=== PATIENT | male | born 1955 | race Caucasian/White ===

== ENCOUNTER 2023-11-11 11:10 | Emergency (ER) | payer MEDICARE, BC, SELFPAY ==
[2023-11-11 11:26] LABS: Glucose - Point of Care 120 mg/dl (70-99)
[2023-11-11 11:29] VITALS: BP 143/78
[2023-11-11 11:30] VITALS: BP 143/78; BMI 28.3
[2023-11-11 11:42] LABS: % Basophils 0.2 % (0-2); % Eosinophils 0.6 % (0-6); % Immature Granulocytes 0.3 % (0-0.5); % Lymphocytes 9.8 % (20.5-51.1); % Monocytes 9.4 % (1.7-9.3); % Neutrophils 79.7 % (42.2-75.2); Absolute Eosinophils 0.1 10^3/uL (0-0.7); Absolute Lymphocytes 1.4 10^3/uL (1.2-3.4); Absolute Monocytes 1.3 10^3/uL (0.1-0.6); Absolute Neutrophils 11.3 10^3/uL (1.4-6.5); Hematocrit 44.3 % (39.0-52.0); Hemoglobin 14.7 g/dL (13.0-18.0); Mean Corp Hgb Conc. 33.2 g/dL (33.0-37.0); Mean Corpuscular Hgb 32.3 pg (27.0-31.0); Mean Corpuscular Volume 97.4 fL (80.0-94.0); Mean Platelet Volume 10.1 fL (7.4-10.4); Nucleated Red Blood Cells % 0 % (-); Platelet Count 150 10^3/uL (130-400); Red Blood Cell Count 4.55 10^6/uL (4.70-6.10); White Blood Cell Count 14.1 10^3/uL (4.8-10.8)
[2023-11-11 11:56] LABS: Blood Urea Nitrogen 20 mg/dl (9-20); Calcium 9.4 mg/dl (8.4-10.2); Carbon Dioxide 26 mmol/L (22-30); Chloride 107 mmol/L (98-107); Estimated Creatinine Clearance 117 ml/min; Glucose 126 mg/dl (70-99); Sodium 141 mmol/L (135-145); eGFR > 60.00
[2023-11-11 12:00] VITALS: BP 150/79
[2023-11-11 13:00] VITALS: BP 146/69
--- NOTE | 2023-11-11 13:00 | ED.GENMED ---
History of Present Illness
General
Chief Complaint: Weakness
Source: patient
Exam Limitations: none
Time Seen by Provider: 11/11/23 12:45
Travel History
Have you had any contact with someone who has COVID-19?: No
Do you have any symptoms of coronavirus? Fever > 100 degrees, chills, cough, shortness of breath, sore throat, loss of taste or smell, muscle aches, or headache?: No
History of Present Illness
History of Present Illness:
68-year-old male with history of Parkinson's presents after a fall. He is here visiting from [place] staying in a hotel. states that the travel does sometimes make him more weak. His leg froze today and he got ahead of himself with a walker
when he fell. He has an extensive spine surgical history including fusion in his lumbar spine that led to an infection and subsequently cauda equina and decompressive surgery. He also had another fall with an injury to his cervical spine requiring
anterior and posterior instrumentation. This was done in the last several years by a neurosurgeon in [place]. He denies any pain from the fall today. He did not hit his head. The supports this. He is not anticoagulated. No new numbness or
weakness to the arms or legs.
Past History
Past History
ED Past Medical History: HTN, Hypercholesterolemia and Other (Diabetes)
ED Past Surgical History: Appendectomy and Orthopedic
Social History
Tobacco: Non-smoker
Alcohol: Occasional
Drug: None
Personal:
Living: with family
Employment: Employed
Family History
Family History: Other (Noncontributory)
Phy Exam
Physical Exam
Physical Exam:
General: Well-appearing male no acute respiratory distress
HEENT: Normocephalic blunted affect mucosa moist
Heart: Regular rate and rhythm lungs: Clear no wheeze
Musculoskeletal exam: No deformity noted to the lower extremities. Passive internal/external rotation of the hips are not painful. He is slightly tender over the cervical spine but nontender over the lumbar spine. Thoracic spine nontender
Extremities: No cyanosis or edema
skin: Well-appearing surgical incisions over the neck and lower back no rash
Course
Orders/Labs/Results
Orders:
Orders
11/11/23 11:17
ECG [Electrocardiogram (*1)] Urgent
Reason for Study: Fatigue / Weakness
EKG- Treatment ONCE
11/11/23 11:23
Basic Metabolic Panel Urgent
Complete Blood Count/With Diff Urgent
11/11/23 13:00
CT Cervical Spine W/o Iv Contr Urgent
Comment:
Reason For Exam: fall
CR Lumbar Spine 2 Or 3 Views Urgent
Comment:
Reason For Exam: fall
11/11/23 13:43
CT Head W/o Iv Contrast Urgent
Comment:
Reason For Exam: fall
Abnormal Lab Results
11/11/23 11/11/23
11:23 11:25
WBC 14.1 H 10^3/uL
(4.8-10.8)
RBC 4.55 L 10^6/uL
(4.70-6.10)
MCV 97.4 H fL
(80.0-94.0)
MCH 32.3 H pg
(27.0-31.0)
Absolute Neuts (auto) 11.3 H 10^3/uL
(1.4-6.5)
Absolute Monos (auto) 1.3 H 10^3/uL
(0.1-0.6)
Neutrophils % 79.7 H %
(42.2-75.2)
Lymphocytes % 9.8 L %
(20.5-51.1)
Monocytes % 9.4 H %
(1.7-9.3)
Glucose 126 H mg/dl
(70-99)
POC Glucose 120 H mg/dl
(70-99)
11/11/23 11:23
11/11/23 11:23
Vital Signs
Initial and Last Documented VS:
Initial Vital Signs
Temp Pulse Resp Pulse Ox
99.6 F 84 20 97
11/11/23 11:12 11/11/23 11:12 11/11/23 11:12 11/11/23 11:12
Last Documented Vital Signs
Temp Pulse Resp BP Pulse Ox
99.6 F 82 27 154/74 98
11/11/23 11:12 11/11/23 14:00 11/11/23 14:00 11/11/23 14:00 11/11/23 14:00
MDM/Problems Addressed
Differential Diagnosis Includes:
Fall extensive history of surgery to the neck and lower back. No obvious injury on exam will order CT of the cervical spine x-ray of the lumbar spine. Check labs for weakness cause including electrolyte abnormality or anemia
*Critical Care Note
Total Time (30-74mins, 75-104mins- exclusive of procedures): Not Applicable
Update Note
Update Note:
CT of the head negative CT of cervical spine x-ray of the lower spine all reviewed personally reviewed by radiologist and are negative for acute findings. There is chronic compression deformity noted of L3 with prior vertebroplasty. There is
intact hardware of the lumbar spine and cervical spine. Reassured patient and regarding this information. They are here visiting from [place]. Disc was made of the images and the reports were printed out for them and they are stable for
discharge
ED Attending Note
-
Portions of this chart may have been created with voice recognition software.� Occasional wrong word or��sound alike� substitutions may have occurred due to the inherent limitations of voice recognition software.
Discharge Plan
Departure
Patient Disposition: Home (Routine Discharge)
Date of Disposition: 11/11/23
Time of Disposition: 14:39
Patient with high blood pressure during this ER visit?: No
Discharge Problem:
Fall
Instructions: Preventing falls in adults
Prescriptions:
No Action
amlodipine 10 MG tablet
10 mg PO DAILY
simvastatin 20 MG tablet
20 mg PO DAILY
telmisartan [Micardis] 40 MG tablet
40 mg PO DAILY
spironolactone 50 MG tablet
50 mg PO DAILY
obrtxxmr-pzu-RJ-lycopen-lutein [Centrum Silver] 1 EACH tablet
1 ea PO DAILY
glimepiride 4 MG tablet
4 mg PO BID
potassium chloride 10 MEQ capsule, extended release
20 meq PO HS
sitagliptin phosphate [Januvia] 100 MG tablet
100 mg PO DAILY
omeprazole 20 MG tablet,delayed release (DR/EC)
20 mg PO DAILY Qty: 30 0RF
insulin glargine [Lantus U-100 Insulin] 1,000 UNITS/10 ML solution
10 units SC HS
Victoza
3 units SC HS
Referrals:
UNKNOWN - PT DOES,NOT KNOW [Family Provider] -
Activity Restrictions/Additional Instructions:
Continue current medications. Please return here for worsening symptoms otherwise follow-up with family doctor
Interventions
Interventions:
*Risk Screen - Suicide Last Done: 11/11/23 11:18
*General Assessment Last Done: 11/11/23 11:18
*Neglect/Abuse Screening Last Done: 11/11/23 11:18
ED- Fall Risk Assessment Last Done: 11/11/23 11:18
*ED COVID-19 Vaccine History Last Done: 11/11/23 11:12
ED- Cardiac Assessment Last Done: 11/11/23 11:31
ED- Neurological Assessment Last Done: 11/11/23 11:18
ED- Pulmonary Assessment Last Done: 11/11/23 11:18
Discharge Date and Time
Print Language: AU[place]AL[place]
[2023-11-11 14:00] VITALS: BP 154/74
== END 2023-11-11 15:25 | disposition home or self-care (01) ==
LOC: EMR 11:10
PROVIDERS: Emergency Medicine; EMERGENCY PHYSICIAN Emergency Medicine
DX: R53.1 Weakness (principal); W19.XXXA Unspecified fall, initial encounter; I10 Essential (primary) hypertension; G20.A1 Parkinson's disease without dyskinesia, without mention of fluctuations; E11.9 Type 2 diabetes mellitus without complications; E78.00 Pure hypercholesterolemia, unspecified; M48.56XA Collapsed vertebra, not elsewhere classified, lumbar region, initial encounter for fracture; Z98.1 Arthrodesis status; Z88.6 Allergy status to analgesic agent; Z88.2 Allergy status to sulfonamides; Z88.8 Allergy status to other drugs, medicaments and biological substances
CPT/HCPCS: 99285; 70450; 72100; 72125; 80048; 82962; 85025; 93005

== ENCOUNTER 2024-01-25 14:41 | Emergency (ER) | payer MEDICARE, BC, SELFPAY ==
[2024-01-25 14:52] VITALS: BP 119/72
--- NOTE | 2024-01-25 14:53 | ED.GENMED ---
History of Present Illness
General
Chief Complaint: Cardiac Symptoms
Source: patient, spouse and family
Time Seen by Provider: 01/25/24 14:52
History of Present Illness
History of Present Illness:
68-year-old male presents with the initial complaint of shortness of breath followed by chest pain. Points to the midsternal chest. This started about an hour ago. Then complained of some right-sided headache. Headache is resolved. Still having
some chest pain and shortness of breath. Nonpleuritic nonradiating. No history of similar type complaints. Complicated history with Parkinson's disease and anoxic encephalopathy with resulting neurologic issues. At neurologic baseline per
Past History
Past History
ED Past Medical History: HTN, Hypercholesterolemia, Other (Diabetes) and Other (Anoxic encephalopathy. Parkinson's disease)
ED Past Surgical History: Appendectomy and Orthopedic
Social History
Tobacco: Non-smoker
Alcohol: Occasional
Drug: None
Personal:
Living: with family
Employment: Employed
Family History
Family History: Other (Noncontributory)
Phy Exam
Physical Exam
Physical Exam:
GENERAL: Alert and oriented. Slow to answer questions. Parkinsonian facies.
EYE: Orbits normal.
NECK: Supple, no thyroid palpable
ENT: No drooling or stridor
CARDIAC: Regular rate and rhythm without any obvious murmurs.
LUNGS: Clear breath sounds,normal
ABDOMEN: Soft, without focal tenderness or distention
NEUROLOGICAL: Alert and oriented , parkinsonian changes. Slow to answer questions but alert. Mildly lethargic on arrival. Much improved later
SKIN: Warm and dry, no rash or lesion, no discoloration, skin intact.
MUSCULOSKELETAL: No edema,no deformity.Good color
PSYCH: Normal and appropriate interaction.
Course
Orders/Labs/Results
Orders:
Orders
01/25/24 14:46
Electrocardiogram (*1) Urgent
Reason for Study: Chest Pain
EKG- Treatment ONCE
01/25/24 14:54
Complete Blood Count/With Diff Urgent
Comprehensive Metabolic Panel Urgent
Troponin I Urgent
01/25/24 15:19
CT Head W/o Iv Contrast Urgent
Comment:
Reason For Exam: Sudden headache
01/25/24 17:23
D-Dimer Urgent
01/25/24 18:39
CXR2 [CR Chest - 2 Views ] Urgent
Comment:
Reason For Exam: sob
01/25/24 18:51
Electrocardiogram (*1) Stat
Reason for Study: Other
Other Reason for Exam: chest pain
EKG- Treatment ONCE
01/25/24 18:53
Troponin I Urgent
Abnormal Lab Results
01/25/24
14:54
RBC 4.58 L 10^6/uL
(4.70-6.10)
MCH 32.3 H pg
(27.0-31.0)
Chloride 110 H mmol/L
(98-107)
BUN 26 H mg/dl
(9-20)
Glucose 154 H mg/dl
(70-99)
Total Bilirubin 1.5 H mg/dl
(0.2-1.3)
01/25/24 14:54
01/25/24 14:54
Vital Signs
Initial and Last Documented VS:
Initial Vital Signs
Pulse Resp Pulse Ox
109 46 94
01/25/24 14:48 01/25/24 14:48 01/25/24 14:48
Last Documented Vital Signs
Temp Pulse Resp BP Pulse Ox
99.6 F 73 22 135/69 96
01/25/24 14:52 01/25/24 18:13 01/25/24 18:13 01/25/24 18:12 01/25/24 18:13
*Radiology
Radiology exam reviewed: preliminary read by ED provider (Negative)
*Pulse Oximetry
Patient hypoxic: no
*EKG
Interpreted by ED Provider?: Yes
Interpretation: abnormal
Comparison EKG: changes noted
Heart Rate: 108
Rate: tachycardiac
Rhythm: other (Questionable junctional tachycardia)
[place]: left axis deviation
QRS Pattern: right bundle branch block
Ischemia: non-specific ST changes
*Critical Care Note
Total Time (30-74mins, 75-104mins- exclusive of procedures): Not Applicable
Update Note
Update Note:
Repeat EKG normal sinus rhythm first-degree block left axis deviation right bundle branch block. No acute changes. Repeat troponin negative. Chest x-ray negative. D-dimer negative. Patient is asymptomatic. Stable for discharge to follow-up.
Looks well at this time
ED Attending Note
-
Portions of this chart may have been created with voice recognition software.� Occasional wrong word or��sound alike� substitutions may have occurred due to the inherent limitations of voice recognition software.
Discharge Plan
Departure
Patient Disposition: Home (Routine Discharge)
Date of Disposition: 01/25/24
Time of Disposition: 19:44
Patient with high blood pressure during this ER visit?: Yes
Discharge Problem:
Transient dyspnea/chest pain/headache, All resolved, History of Parkinson's disease
Instructions: Chest Pain (DC), Shortness of Breath, Adult ED, BLOOD PRESSURE
Prescriptions:
No Action
amlodipine 10 MG tablet
10 mg PO DAILY
simvastatin 20 MG tablet
20 mg PO DAILY
telmisartan [Micardis] 40 MG tablet
40 mg PO DAILY
spironolactone 50 MG tablet
50 mg PO DAILY
douztuej-kis-DS-lycopen-lutein [Centrum Silver] 1 EACH tablet
1 ea PO DAILY
glimepiride 4 MG tablet
4 mg PO BID
potassium chloride 10 MEQ capsule, extended release
20 meq PO HS
sitagliptin phosphate [Januvia] 100 MG tablet
100 mg PO DAILY
omeprazole 20 MG tablet,delayed release (DR/EC)
20 mg PO DAILY Qty: 30 0RF
insulin glargine [Lantus U-100 Insulin] 1,000 UNITS/10 ML solution
10 units SC HS
Victoza
3 units SC HS
Referrals:
UNKNOWN - PT DOES,NOT KNOW [Family Provider] -
Activity Restrictions/Additional Instructions:
Follow-up closely with your physicians when you return to [place]
Return with any recurrent chest pain shortness of breath unusual headache vomiting lethargy fever or any other concerning symptoms
Interventions
Interventions:
*Risk Screen - Suicide Last Done: 01/25/24 14:48
*General Assessment Last Done: 01/25/24 14:48
*Neglect/Abuse Screening Last Done: 01/25/24 14:48
*ED COVID-19 Vaccine History Last Done: 01/25/24 14:48
ED- Pulmonary Assessment Last Done: 01/25/24 14:51
ED- Cardiac Assessment Last Done: 01/25/24 14:51
Discharge Date and Time
Print Language: TURKMEN
[2024-01-25 15:00] VITALS: BP 118/68
[2024-01-25 15:09] LABS: % Basophils 0.5 % (0-2); % Eosinophils 1.5 % (0-6); % Immature Granulocytes 0.1 % (0-0.5); % Lymphocytes 22.1 % (20.5-51.1); % Monocytes 7.4 % (1.7-9.3); % Neutrophils 68.4 % (42.2-75.2); Absolute Eosinophils 0.1 10^3/uL (0-0.7); Absolute Lymphocytes 1.9 10^3/uL (1.2-3.4); Absolute Monocytes 0.6 10^3/uL (0.1-0.6); Absolute Neutrophils 5.8 10^3/uL (1.4-6.5); Hematocrit 42.4 % (39.0-52.0); Hemoglobin 14.8 g/dL (13.0-18.0); Mean Corp Hgb Conc. 34.9 g/dL (33.0-37.0); Mean Corpuscular Hgb 32.3 pg (27.0-31.0); Mean Corpuscular Volume 92.6 fL (80.0-94.0); Mean Platelet Volume 9.7 fL (7.4-10.4); Nucleated Red Blood Cells % 0 % (-); Platelet Count 160 10^3/uL (130-400); Red Blood Cell Count 4.58 10^6/uL (4.70-6.10); Red Cell Dist. Width 13.1 % (11.5-14.5); White Blood Cell Count 8.5 10^3/uL (4.8-10.8)
[2024-01-25 15:23] LABS: ALT (SGPT) < 10 U/L (0-50); AST (SGOT) 26 U/L (17-59); Albumin 3.9 g/dl (3.5-5.0); Alkaline Phosphatase 80 U/L (38-126); Blood Urea Nitrogen 26 mg/dl (9-20); Carbon Dioxide 26 mmol/L (22-30); Chloride 110 mmol/L (98-107); Glucose 154 mg/dl (70-99); Potassium 4.1 mmol/L (3.5-5.1); Sodium 142 mmol/L (135-145); Total Bilirubin 1.5 mg/dl (0.2-1.3); Total Protein 6.5 g/dl (6.3-8.2); eGFR > 60.00
[2024-01-25 15:34] LABS: Troponin I < 0.012 ng/ml
[2024-01-25 16:00] VITALS: BP 134/79
[2024-01-25 18:06] LABS: D-Dimer 0.45 ug/mlFEU (0.00-0.50)
[2024-01-25 18:12] VITALS: BP 135/69
[2024-01-25 19:22] LABS: Troponin I < 0.012 ng/ml
[2024-01-25 19:46] VITALS: BP 122/68
== END 2024-01-25 20:09 | disposition home or self-care (01) ==
LOC: EMR 14:41
PROVIDERS: EMERGENCY PHYSICIAN Emergency Medicine
DX: R07.89 Other chest pain (principal); R51.9 Headache, unspecified; G20.A1 Parkinson's disease without dyskinesia, without mention of fluctuations; I10 Essential (primary) hypertension
CPT/HCPCS: 99285; 70450; 71046; 80053; 84484; 85025; 85379; 93005